=== PATIENT | male | born 1975 | race Caucasian/White ===

== ENCOUNTER 2019-04-17 18:17 | Emergency (ER) | payer MEDICAID ==
--- NOTE | 2019-04-17 18:35 | NUR ---
NO ANSWER IN ER LOBBY
--- NOTE | 2019-04-17 19:15 | NUR ---
PATIENT LEFT WITHOUT BEING SEEN
== END 2019-04-17 18:35 | disposition left against medical advice (07) ==
LOC: MED 18:17
DX: R07.9 Chest pain, unspecified (principal); Z53.21 Procedure and treatment not carried out due to patient leaving prior to being seen by health care provider

== ENCOUNTER 2021-05-11 09:41 | Day surgery (SDC) | payer OTHER, SELFPAY ==
[~2021-05-11] VITALS: Ht 177.8 cm; Wt 108.0 kg
== END 2021-05-11 10:35 | disposition home or self-care (01) ==
LOC: MDS 09:41 → MMU 09:46 → MDS 10:35
PROVIDERS: ATTEND Internal Medicine Gastroenterology
DX: K74.60 Unspecified cirrhosis of liver (principal); F32.9 Major depressive disorder, single episode, unspecified; I10 Essential (primary) hypertension; J45.909 Unspecified asthma, uncomplicated; F10.10 Alcohol abuse, uncomplicated; E66.01 Morbid (severe) obesity due to excess calories; Z68.34 Body mass index [BMI] 34.0-34.9, adult; Z79.899 Other long term (current) drug therapy; Z20.822 Contact with and (suspected) exposure to COVID-19; Z53.8 Procedure and treatment not carried out for other reasons

== ENCOUNTER 2021-05-25 09:59 | Day surgery (SDC) | payer OTHER ==
[~2021-05-25] VITALS: Ht 177.8 cm; Wt 108.0 kg
[2021-05-25] MEDS ORDERED: MIDAZOLAM 5 MG/5 ML VIAL ONE (12:51)
[2021-05-25] MEDS ORDERED: fentaNYL citrate 0.05 MG/ML VIAL ONE (12:51)
[2021-05-25] MEDS ORDERED: diphenhydrAMINE 50 MG/ML VIAL ONE (12:51)
[2021-05-25] MEDS ORDERED: MIDAZOLAM 2 MG/2 ML VIAL IVP ONE (14:10)
[2021-05-25] MEDS ORDERED: fentaNYL citrate 0.05 MG/ML VIAL IVP ONE (14:10)
[2021-05-25] MEDS ORDERED: diphenhydrAMINE 50 MG/ML VIAL IVP ONE (14:10)
== END 2021-05-25 14:05 | disposition home or self-care (01) ==
LOC: MDS 09:59 → MMU 10:02 → MDS 14:05
PROVIDERS: ATTEND Internal Medicine Gastroenterology
DX: K74.60 Unspecified cirrhosis of liver (principal); K44.9 Diaphragmatic hernia without obstruction or gangrene; F10.10 Alcohol abuse, uncomplicated; E66.01 Morbid (severe) obesity due to excess calories; I10 Essential (primary) hypertension; F32.9 Major depressive disorder, single episode, unspecified; J45.909 Unspecified asthma, uncomplicated; Z68.34 Body mass index [BMI] 34.0-34.9, adult; Z20.822 Contact with and (suspected) exposure to COVID-19; Z79.899 Other long term (current) drug therapy
CPT/HCPCS: 43239; 87426; J1200; J2250; J3010